=== PATIENT | female | born 1995 | race Caucasian/White ===

== ENCOUNTER 2018-03-18 21:14 | Emergency (ER) | payer OTHER ==
[~2018-03-18] VITALS: Ht 157.5 cm; Wt 54.3 kg
[2018-03-18 21:24] VITALS: Ht 157.5 cm; Wt 54.3 kg
[2018-03-18 21:52] LABS: BASO % 1.6 %; EOS % 1.3 %; EOS ABS # 0.08 K/uL (0-0.5); HEMATOCRIT 41.4 % (37-47); HEMOGLOBIN 14.4 g/dL (12.0-16.0); IG# 0.01 K/uL (0.00-0.02); LYMPH % 49.1 %; LYMPH ABS # 3.01 K/uL (1.2-3.4); MEAN CELL VOLUME 86.4 fL (80-100); MEAN CORPUSCULAR HEMOGLOBIN 30.1 pg (25-34); MEAN CORPUSCULAR HGB CONC 34.8 g/dl (32-36); MEAN PLATELET VOLUME 10.3 fL (7.4-10.4); MONO % 8.2 %; NEUT % 39.6 %; NEUT ABS # 2.43 K/uL (1.4-6.5); PLATELET COUNT 264 K/uL (130-400); RED CELL DISTRIBUTION WIDTH CV 12.9 % (11.5-14.5); RED CELL DISTRIBUTION WIDTH SD 41.4 fL (36.4-46.3); WHITE BLOOD COUNT 6.13 K/uL (4.8-10.8)
[2018-03-18 22:08] LABS: CALCIUM 9.1 mg/dl (8.5-10.1); CREATININE 0.76 mg/dl (0.60-1.20); POTASSIUM 4.1 mmol/L (3.5-5.1)
[2018-03-18] MEDS ORDERED: SERT50TA PO (22:10)
[2018-03-18] MEDS ORDERED: BCPILLS PO (22:10)
--- NOTE | 2018-03-18 22:15 | DIAGNOSTIC IMAGING REPORT ---
RIGHT PAROTID ULTRASOUND CLINICAL HISTORY: Right jaw pain. COMPARISON STUDY: No previous studies for comparison. FINDINGS: There are a few small intraparotid lymph nodes. The parotid gland appears otherwise normal. There is no evidence of significant hypervascularity. IMPRESSION: Small intraparotid lymph nodes. Otherwise unremarkable ultrasound of the right parotid gland. Electronically signed by: Alan Banerjee M.D. 03/18/2018 10:14 PM Dictated Date/Time: 03/18/2018 10:12 PM
[2018-03-18] MEDS ORDERED: AMOXICILLIN 250 MG CAP PO STA (22:41)
[2018-03-18] MEDS ORDERED: AMOX500C3 PO (22:47)
[2018-03-18 22:53] VITALS: BP 125/84; PULSE 70; TEMP 36.9; O2SAT 99
--- NOTE | 2018-03-19 00:50 | EMERGENCY ROOM VISIT NOTE ---
History First contact with patient: 21:26 Chief Complaint: FACIAL PAIN/INJURY Stated Complaint: PAIN IN JAW History of Present Illness The patient is a 22 year old female who presents to the Emergency Room with complaints of right lower jaw pain for the past few days it is steadily getting worse that is slightly swollen. Patient states her grandfather had jaw cancer and she is worried she might have this. Patient does not smoke or chew tobacco. No alcohol use. No drug use. Patient states pain is worse with chewing and movement of the jaw. Pain is described as aching, ranging in severity 4 out of 10. It does not radiate. She does grind her teeth. She sees a dentist on a regular basis. She does not have wisdom teeth. No history of similar symptoms in the past. Patient denies chest pain, dyspnea, fever, chills, cough, congestion, cold symptoms, dysphagia, mouth swelling, dental pain. Review of Systems An 10 system review of systems was completed with positives and pertinent negatives listed in the HPI. Past Medical/Surgical History Endometriosis Social History Smoking Status: Never Smoker Smokeless Tobacco Use: No Alcohol Use: none Drug Use: none Occupation Status: employed Current/Historical Medications Scheduled Amoxicillin (Amoxil), 500 MG PO TID Control Pills ( Control Pills), 1 TAB PO DAILY Sertraline (Zoloft), 50 MG PO DAILY Physical Exam Vital Signs Date Time Temp Pulse Resp B/P (MAP) Pulse Ox O2 Delivery O2 Flow Rate FiO2 03/18/18 22:53 36.9 70 20 125/84 99 03/18/18 22:44 36.9 70 20 125/84 99 Room Air 03/18/18 21:24 36.9 67 20 115/80 99 Room Air Physical Exam VITALS: Vitals are noted on the nurse's note and reviewed by myself. Vital signs stable. GENERAL: Pleasant, in no acute distress, nondiaphoretic, well-developed well- nourished. SKIN: The skin was without rashes, erythema, edema, or bruising. There is no tenting of the skin. Capillary reflex less than 2 seconds. HEAD: Normocephalic atraumatic. Face: Right lower jaw line slightly edematous and tender to palpation. Patient can fully open and close jaw without tenderness over the TMJ. Dental exam: No loose or chipped teeth. No signs of abscess. No drainage from [place]'s duct. No Bhavesh's angina. EARS: External auditory canals clear, tympanic membranes pearly singh without erythema or effusion bilaterally. EYES: Pupils equal round and reactive to light and accommodation. Conjunctivae without injection, sclerae without icterus. Extraocular movements intact. NOSE: Patent, turbinates without inflammation or discharge. No sinus tenderness. MOUTH: Mucous membranes moist. Pharynx without erythema or exudate. Uvula midline. Airway patent. Tongue does not deviate. NECK: Supple without nuchal rigidity. No lymphadenopathy. No thyromegaly. Cervical spine is nontender. No JVD. HEART: Regular rate and rhythm without murmurs gallops or rubs. LUNGS: Clear to auscultation bilaterally without wheezes, rales or rhonchi. No retractions or accessory muscle use. ABDOMEN: Positive bowel sounds x 4. Normal tympanic percussion. Soft, nontender, without masses or organomegaly. [place] sign negative. No guarding or rebound tenderness. MUSCULOSKELETAL: No muscle atrophy, erythema, or edema noted. NEURO: Patient was alert and oriented to person place and time. Normal sensation to light and sharp touch. No focal neurological deficits. Medical Decision & Procedures Laboratory Results 03/18/18 21:43 Red Blood Count 4.79, Mean Corpuscular Volume 86.4, Mean Corpuscular Hemoglobin 30.1, Mean Corpuscular Hemoglobin Concent 34.8, Mean Platelet Volume 10.3, Neutrophils (%) (Auto) 39.6, Lymphocytes (%) (Auto) 49.1, Monocytes (%) (Auto) 8.2, Eosinophils (%) (Auto) 1.3, Basophils (%) (Auto) 1.6, Neutrophils # (Auto) 2.43, Lymphocytes # (Auto) 3.01, Monocytes # (Auto) 0.50, Eosinophils # (Auto) 0.08, Basophils # (Auto) 0.10 03/18/18 21:43 Test 03/18/18 21:43 White Blood Count 6.13 K/uL (4.8-10.8) Red Blood Count 4.79 M/uL (4.2-5.4) Hemoglobin 14.4 g/dL (12.0-16.0) Hematocrit 41.4 % (37-47) Mean Corpuscular Volume 86.4 fL (80-100) Mean Corpuscular Hemoglobin 30.1 pg (25-34) Mean Corpuscular Hemoglobin Concent 34.8 g/dl (32-36) Platelet Count 264 K/uL (130-400) Mean Platelet Volume 10.3 fL (7.4-10.4) Neutrophils (%) (Auto) 39.6 % Lymphocytes (%) (Auto) 49.1 % Monocytes (%) (Auto) 8.2 % Eosinophils (%) (Auto) 1.3 % Basophils (%) (Auto) 1.6 % Neutrophils # (Auto) 2.43 K/uL (1.4-6.5) Lymphocytes # (Auto) 3.01 K/uL (1.2-3.4) Monocytes # (Auto) 0.50 K/uL (0.11-0.59) Eosinophils # (Auto) 0.08 K/uL (0-0.5) Basophils # (Auto) 0.10 K/uL (0-0.2) RDW Standard Deviation 41.4 fL (36.4-46.3) RDW Coefficient of Variation 12.9 % (11.5-14.5) Immature Granulocyte % (Auto) 0.2 % Immature Granulocyte # (Auto) 0.01 K/uL (0.00-0.02) Anion Gap 6.0 mmol/L (3-11) Est Creatinine Clear Calc Drug Dose 93.4 ml/min Estimated GFR () 130.9 Estimated GFR (Non- 112.9 BUN/Creatinine Ratio 10.2 (10-20) Calcium Level 9.1 mg/dl (8.5-10.1) Amylase Level 64 U/L (25-115) Medications Administered Medications (Trade) Dose Ordered Sig/[place] Route Start Time Stop Time Status Last Admin Dose Admin Amoxicillin (Amoxil Cap) 500 mg NOW STAT PO 03/18/18 22:41 03/18/18 22:43 DC 03/18/18 22:48 500 MG ED Course Prior records reviewed and summarized as above. Triage Nursing notes reviewed. The patient's history was concerning for swelling and right lower jaw pain steadily getting worse. Differential diagnosis: Etiologies such as dental infection, peritonitis, salivary stone, cellulitis, abscess, TMJ, bruxism as well as others were entertained.. Physical examination: As above ER treatment provided: Amoxicillin, patient declined pain medicine On reassessment the patient felt better. Diagnostics interpreted by me: The labs revealed no leukocytosis. Stable H&H Imaging studies: RIGHT PAROTID ULTRASOUND CLINICAL HISTORY: Right jaw pain. COMPARISON STUDY: No previous studies for comparison. FINDINGS: There are a few small intraparotid lymph nodes. The parotid gland appears otherwise normal. There is no evidence of significant hypervascularity. IMPRESSION: Small intraparotid lymph nodes. Otherwise unremarkable ultrasound of the right parotid gland. Electronically signed by: Alan Banerjee M.D. This appears to be right lower jaw pain with some reactive lymph nodes. This could be an early infection. Patient was started on antibiotics. She was advised to avoid touching the area and follow-up family care in a few days or here in the ER sooner for fevers, increasing pain, increasing swelling, worsening signs or symptoms or as needed. Patient had no discernible abscess. No leukocytosis. She is afebrile nontoxic. No signs of meningitis or Bhavesh's angina. By the evaluation outlined above emergent etiologies such as abscess, Bhavesh angina, as well as others were deemed relatively unlikely. The pt informed about the findings as listed above. All questions were answered and pleased with the treatment. Return instructions were outlined and the patient was discharged in stable condition. Outpatient prescription management: Amoxicillin Referral: The patient was referred back to primary care physician for follow-up in 2 to 3 days for a recheck of the current condition. Case reviewed with my attending The chart was completed utilizing [employer] Speech voice recognition software. Grammatical errors, random word insertions, pronoun errors, and incomplete sentences are an occassional consequence of this system due to software limitations, ambient noise, and hardware issues. Any formal questions or concerns about the content, text, or information contained within the body of this dictation should be directly addressed to the physician elementary assistant teacher for clarification. Medical Decision As above Medication Reconcilliation Current Medication List: was personally reviewed by me Blood Pressure Screening Patient's blood pressure: Normal blood pressure Impression Primary Impression: Lymphadenopathy Additional Impressions: Jaw pain Parotid gland pain Departure Information Dispostion Home / Self-Care Condition GOOD Prescriptions Amoxicillin (AMOXIL) 500 Mg Cap 500 MG PO TID for 10 Days, #30 CAP Prov: Anyi Donald .TANISHA 03/18/18 Forms HOME CARE DOCUMENTATION FORM, IMPORTANT VISIT INFORMATION Patient Instructions My [facility] Additional Instructions Amoxicillin 500mg: Take one pill 3 times daily for 10 days for your infection. All antibiotics can cause diarrhea. If this occurs and you feel worse or it does not resolve in 1-2 days follow up with your doctor or return to the Emergency Department as this could be signs of serious underlying problems. Any medication can cause an allergic reaction, stop the pills immediately and return to the ER for rash, hives, breathing difficulties, or swelling. Ibuprofen(Motrin, Advil) may be used for fever or pain. Use 400mg every six hours as needed. Take with food. Avoid using more than 1600mg in a 24 hour period. Do not use 1600mg per day for more than three consecutive days without physician direction. Prolonged inappropriate use can lead to stomach upset or ulcers. This medication can be taken if you need to drive, work, or perform activities which may be dangerous when taking narcotic pain medication. (AND/OR) Acetaminophen(Tylenol) may be used for fever or pain. Use 1000mg every six hours as needed. Avoid using more than 3000mg in a 24 hour period. This medication can be taken if you need to drive, work, or perform activities which may be dangerous when taking narcotic pain medication. Follow-up family care in 2-3 days. Return to ER sooner for facial swelling, fever, redness, worsening signs or symptoms or as needed. Problem Qualifiers
== END 2018-03-18 22:53 | disposition home or self-care (01) ==
LOC: C.EDB 21:15 → C.EDD 22:53
DX: R59.1 Generalized enlarged lymph nodes (principal); R68.84 Jaw pain; K11.8 Other diseases of salivary glands; Z79.3 Long term (current) use of hormonal contraceptives; Z79.899 Other long term (current) drug therapy

== ENCOUNTER 2018-06-24 23:13 | Emergency (ER) | payer OTHER ==
[~2018-06-24] VITALS: Ht 157.5 cm; Wt 56.7 kg
[~2018-06-24 23:13] MED LIST: BCPILLS PO; SERT50TA PO
[2018-06-24 23:17] VITALS: TEMP 36.9; Ht 157.5 cm; Wt 56.7 kg
--- NOTE | 2018-06-24 23:33 | EMERGENCY ROOM VISIT NOTE ---
History Report prepared by Shireen: Raúl Snyder Under the Supervision of: Dr. Samantha Esquivel D.O. 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 She reports she lost consciousness and hit her head on the floor. She states it was unwitnessed. The patient notes she has a history of syncopal episode without warning. She states she has lost consciousness within the past year without explanation. The patient reports each episode of losing consciousness occurred when she was standing. She notes she felt perfectly fine today and was eating and drinking normally. The patient states she was surprised she lost consciousness. Her coworker reports she was alert and talking immediately after ; she did not have trouble with her eyes or speech. The coworker denies seizure like activity. The patient notes she has a mild headache and attributes it to her busy work day. The patient states she once lost consciousness while she was getting water from her fridge at home. 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 She reports she takes Zoloft, and if she messes her dosing up, she will get vertigo-like symptoms and lose consciousness. The patient notes she used to take iron supplements per her MGMT SPECIALIST, but she has stopped taking it. She states a history of anxiety and endometriosis. She denies being evaluated for her syncopal episodes, physical complaints, a family history of syncopal episodes, abdominal pain, neck pain, and back pain. 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 A total of 10 systems reviewed and were otherwise negative. Past Medical & Surgical Medical Problems: (1) Endometriosis Family History Patient reports no known family medical history. Social History Smoking Status: Never Smoker Alcohol Use: none Drug Use: none Marital Status: single Housing Status: lives with roommate Occupation Status: employed, [employer] student Current/Historical Medications Scheduled Control Pills ( Control Pills), 1 TAB PO DAILY Sertraline (Zoloft), 50 MG PO DAILY Allergies Coded Allergies: No Known Allergies (Unverified , 06/24/18) Physical Exam Vital Signs Date Time Temp Pulse Resp B/P (MAP) Pulse Ox O2 Delivery O2 Flow Rate FiO2 06/25/18 01:58 68 18 116/75 99 06/25/18 00:47 66 16 114/69 98 Room Air 06/24/18 23:57 64 06/24/18 23:17 36.9 61 18 126/84 100 Room Air Physical Exam HEENT: Head - normocephalic and atraumatic. Pupils are equal, round, and reactive to light. Extraocular eye muscles are intact and sclera are anicteric. Ears - bilaterally patent canals with no evidence of hemotympanum. Nose - moist nasal mucosa without evidence of trauma or discharge. Mouth - moist buccal mucosa with no trauma to the teeth or signs of malocclusion. Neck: The neck is supple and there is no pain to palpation over the posterior cervical spine and no obvious step-offs or deformities. There is no JVD or tracheal deviation. Chest: There are no signs of deformities, contusions or abrasions to the chest wall. There is no obvious crepitus or paradoxical chest rise. Heart: Regular, rate, and rhythm. There is a normal S1 and S2 with no murmurs, clicks, or gallops appreciated. Lungs: Clear to auscultation bilaterally with no wheezes, rales, or rhonchi. Abdomen: Soft, completely nontender, nondistended, with good bowel sounds. There is no sign of trauma such as contusions, abrasions or penetrations. There are no palpable pulsatile masses or hepatosplenomegaly. There is no guarding, rigidity, or rebound noted. Pelvis: Stable to rock and compression. Extremities: No obvious trauma, deformities, contusions, or edema. There are easily palpable peripheral pulses. Neuro: The patient is awake and alert and easily able to follow commands. Muscle strength is 5 out of 5 in all 4 extremities. Otherwise, neuro exam is unremarkable. Back: The entire thoracic, lumbar, and sacral spine were palpated. There are no obvious step-offs or deformities noted. There are no obvious signs of trauma such as contusions abrasions penetrations noted to the back. Medical Decision & Procedures Laboratory Results 06/24/18 23:45 Red Blood Count 4.55, Mean Corpuscular Volume 87.7, Mean Corpuscular Hemoglobin 29.0, Mean Corpuscular Hemoglobin Concent 33.1, Mean Platelet Volume 10.6, Neutrophils (%) (Auto) 38.3, Lymphocytes (%) (Auto) 53.0, Monocytes (%) (Auto) 6.7, Eosinophils (%) (Auto) 1.5, Basophils (%) (Auto) 0.5, Neutrophils # (Auto) 2.23, Lymphocytes # (Auto) 3.09, Monocytes # (Auto) 0.39, Eosinophils # (Auto) 0.09, Basophils # (Auto) 0.03 06/24/18 23:45 Test 06/24/18 23:45 06/25/18 00:50 White Blood Count 5.83 K/uL (4.8-10.8) Red Blood Count 4.55 M/uL (4.2-5.4) Hemoglobin 13.2 g/dL (12.0-16.0) Hematocrit 39.9 % (37-47) Mean Corpuscular Volume 87.7 fL (80-100) Mean Corpuscular Hemoglobin 29.0 pg (25-34) Mean Corpuscular Hemoglobin Concent 33.1 g/dl (32-36) Platelet Count 253 K/uL (130-400) Mean Platelet Volume 10.6 fL (7.4-10.4) Neutrophils (%) (Auto) 38.3 % Lymphocytes (%) (Auto) 53.0 % Monocytes (%) (Auto) 6.7 % Eosinophils (%) (Auto) 1.5 % Basophils (%) (Auto) 0.5 % Neutrophils # (Auto) 2.23 K/uL (1.4-6.5) Lymphocytes # (Auto) 3.09 K/uL (1.2-3.4) Monocytes # (Auto) 0.39 K/uL (0.11-0.59) Eosinophils # (Auto) 0.09 K/uL (0-0.5) Basophils # (Auto) 0.03 K/uL (0-0.2) RDW Standard Deviation 42.1 fL (36.4-46.3) RDW Coefficient of Variation 13.1 % (11.5-14.5) Immature Granulocyte % (Auto) 0.0 % Immature Granulocyte # (Auto) 0.00 K/uL (0.00-0.02) Anion Gap 9.0 mmol/L (3-11) Est Creatinine Clear Calc Drug Dose 84.5 ml/min Estimated GFR () 116.0 Estimated GFR (Non- 100.1 BUN/Creatinine Ratio 13.8 (10-20) Calcium Level 8.4 mg/dl (8.5-10.1) Total Bilirubin 0.4 mg/dl (0.2-1) Aspartate Amino Transf (AST/SGOT) 24 U/L (15-37) Alanine Aminotransferase (ALT/SGPT) 23 U/L (12-78) Alkaline Phosphatase 64 U/L (45-117) Total Protein 7.5 gm/dl (6.4-8.2) Albumin 4.0 gm/dl (3.4-5.0) Globulin 3.5 gm/dl (2.5-4.0) Albumin/Globulin Ratio 1.1 (0.9-2) Thyroid Stimulating Hormone (TSH) 1.900 uIu/ml (0.300-4.500) Urine Color YELLOW Urine Appearance CLEAR (CLEAR) Urine pH 5.5 (4.5-7.5) Urine Specific [place] 1.012 (1.000-1.030) Urine Protein NEG (NEG) Urine Glucose (UA) NEG (NEG) Urine Ketones TRACE (NEG) Urine Occult Blood 1+ (NEG) Urine Nitrite NEG (NEG) Urine Bilirubin NEG (NEG) Urine Urobilinogen NEG (NEG) Urine Leukocyte Esterase TRACE (NEG) Urine WBC (Auto) 1-5 /hpf (0-5) Urine RBC (Auto) 0-4 /hpf (0-4) Urine Hyaline Casts (Auto) 0 /lpf (0-5) Urine Epithelial Cells (Auto) >30 /lpf (0-5) Urine Bacteria (Auto) NEG (NEG) Urine Test NEG (NEG) Laboratory results per my review. ECG Per My Interpretation Indication: syncope Rate (beats per minute): 60 Rhythm: normal sinus Findings: no acute ischemic change, no ectopy, other (No ST segment changes) ED Course 2326: The patient was evaluated in room B05. A complete history and physical examination were performed. Nursing notes and previous electronic medical records were reviewed. IV lock was established and labs were drawn as above. A 12-lead EKG was obtained as described above. 0101: I reevaluated the patient. She is feeling great. We are waiting for her UA. 0155: Upon reevaluation, the patient is asymptomatic. I discussed findings and results with her. The patient verbalized agreement of the treatment plan. She was discharged home. Medical Decision The patient is a 22 year old female who presents to the Emergency Department after a syncopal episode. Differential diagnosis includes syncope, seizure, cardiac dysrhythmia, anemia, hypoglycemia. Lab results show: Normal TSH, normal glucose and renal function, stable H&H, normal MCV. UA - trace ketones, 1+ blood, trace leukocyte esterase, greater than 30 epithelial cells, negative. This is a 22-year-old female patient presents to the emergency department after a syncopal event. The patient states that she has had multiple previous syncopal events in the past. She denies injuring herself during this episode. 12-lead EKG was unremarkable. The patient was observed on the manager field services. Laboratory studies were normal. We talked about possible causes of syncope in a young healthy female. I suggested that she follow-up with the PCP for possible referral to cardiology and neurology for syncope with no prodromal symptoms. Head Trauma GCS Score: 15 Medication Reconcilliation Current Medication List: was personally reviewed by me Blood Pressure Screening Patient's blood pressure: Normal blood pressure Blood pressure disposition: Did not require urgent referral Impression Primary Impression: Syncopal episodes Scribe Attestation The scribe's documentation has been prepared under my direction and personally reviewed by me in its entirety. I confirm that the note above accurately reflects all work, treatment, procedures, and medical decision making performed by me. Departure Information Dispostion Home / Self-Care Referrals No Doctor, Assigned (PCP) Forms HOME CARE DOCUMENTATION FORM, IMPORTANT VISIT INFORMATION Patient Instructions My [facility], Syncope, Syncope Causes Additional Instructions Rest. Keep yourself well-hydrated and well rested. You will need close follow up with PCP for further evaluation of these episodes of passing out Problem Qualifiers Primary Impression: Syncopal episodes Syncope type: unspecified Qualified Codes: R55 - Syncope and collapse
[2018-06-25] LABS: HEMATOCRIT 39.9 % (37-47); HEMOGLOBIN 13.2 g/dL (12.0-16.0); MEAN CELL VOLUME 87.7 fL (80-100); MEAN CORPUSCULAR HGB CONC 33.1 g/dl (32-36); MEAN PLATELET VOLUME 10.6 fL (7.4-10.4); PLATELET COUNT 253 K/uL (130-400); RED CELL DISTRIBUTION WIDTH CV 13.1 % (11.5-14.5); RED CELL DISTRIBUTION WIDTH SD 42.1 fL (36.4-46.3); WHITE BLOOD COUNT 5.83 K/uL (4.8-10.8)
[2018-06-25 00:29] LABS: CALCIUM 8.4 mg/dl (8.5-10.1); CREATININE 0.84 mg/dl (0.60-1.20); POTASSIUM 3.9 mmol/L (3.5-5.1); TOTAL PROTEIN 7.5 gm/dl (6.4-8.2)
[2018-06-25 00:40] LABS: BASO % 0.5 %; BASO ABS # 0.03 K/uL (0-0.2); EOS % 1.5 %; EOS ABS # 0.09 K/uL (0-0.5); LYMPH ABS # 3.09 K/uL (1.2-3.4); MONO % 6.7 %; MONO ABS # 0.39 K/uL (0.11-0.59); NEUT % 38.3 %; NEUT ABS # 2.23 K/uL (1.4-6.5)
[2018-06-25 01:58] VITALS: BP 116/75; PULSE 68; O2SAT 99
== END 2018-06-25 01:55 | disposition home or self-care (01) ==
LOC: C.EDB 23:14
DX: R55 Syncope and collapse (principal); Z79.3 Long term (current) use of hormonal contraceptives; Z79.899 Other long term (current) drug therapy

== ENCOUNTER 2022-11-27 06:36 | Inpatient (IN) ==
[2022-11-27] MEDS ORDERED: OXYTOCIN 30 UNITS/500 ML BAG IV PRN ×4 (07:20→20:26)
[2022-11-27] MEDS ORDERED: LIDOCAINE 1% LOCAL 20 ML VIAL INFIL PRN ×2 (07:20→07:26)
[2022-11-27] MEDS ORDERED: LACTATED RINGER'S 1,000 ML IV PRN (07:26)
--- NOTE | 2022-11-27 07:30 | History & Physical Report ---
Date of Service November 27, 2022 Assessment & Plan (1) Supervision of normal first : Plan: Admit to L&D. EFM/toco, labs, plans for epidural. Admission and Anticipated Discharge Date Admission Date: November 27, 2022 History of Present Illness Chief Complaint: spontaneous rupture of membranes Primary Care Provider: Erwin Solomon 27yo @ 42 0/7, with large gush of clear fluid at approx 3:30 this morning. + movement, no vaginal bleeding. Feeling some contractions. with LEEP in 2019, COVID infection over 2021. Allergies Allergy/AdvReac Type Severity Reaction Status Date / Time No Known Allergies Allergy Verified 11/23/22 09:50 Home Medications Medication Instructions Recorded Confirmed Type prenat.vits,suzie,iug-aqmi-hylyi 1 tab PO DAILY 04/05/22 11/27/22 History Fish Oil 2,024 mg PO 1XD 11/27/22 11/27/22 History Patient History Medical History ADHD COVID-19 PCOS (polycystic ovarian syndrome) Varicella vaccination Surgical History S/P loop electrosurgical excision procedure S/P tonsillectomy S/P wisdom tooth extraction Status post colposcopy Family History Grandfather (Paternal) Prostate cancer Throat cancer Grandfather (Maternal) Lung cancer Grandmother (Paternal) Dementia Father Hypertension Denies family history of Ovarian cancer Breast cancer Colorectal cancer Social History Smoking Status: Never smoker Second Hand Exposure: No; Hx Alcohol Use: No Hx Substance Use: No Preferred Language: [place] Citizen marital status: Single marital status details: simone Hobson King [phone] Current Living Situation: Significant Other Current Living Situation Comment: lives with dog, cat-fob changing litter current occupational status: employed 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 No s/s chorio or abruption. Skin: no rashes, warm and dry Psychiatric: A+Ox3, euthymic affect Results & Data ([facility]) Vital Signs (Past 12 Hours) Vital Signs Pulse BP 11/27/22 06:41 72 120/67 Coding Level of Care Code None Diagnoses Supervision of normal first Z34.00
[2022-11-27] MEDS: LACTATED RINGER'S 1,000 ML IV PRN ×3 (07:54→17:28)
[2022-11-27] MEDS ORDERED: fentaNYL citrate 100 MCG/2 ML VIAL ONE (08:28)
[2022-11-27] MEDS ORDERED: SODIUM CHLORIDE 0.9% INJ 10 ML VIAL ONE (08:28)
[2022-11-27] MEDS ORDERED: ePHEDrine sulfate 50 MG/ML AMP ONE (08:28)
[2022-11-27] MEDS ORDERED: LIDOCAINE 2%/EPINEPHRINE 1:200,000 20 ML SDV ONE (08:29)
[2022-11-27] MEDS ORDERED: BUPIVACAINE 0.25% 30 ML VIAL ONE (08:29)
[2022-11-27] MEDS ORDERED: fentaNYL 2MCG/ML ROPIVACAINE 1.25MG/ML 100 ML BAG EPI ONE (08:29)
[2022-11-27 09:01] LABS: Hematocrit (blood only) 37.7 % (37.0-47.0); Mean Corpuscular Hemoglobin 27.4 pg (25.0-34.0); Mean Corpuscular Hgb Conc 31.8 g/dL (32.0-36.0); Mean Corpuscular Volume 86.1 fL (80.0-100.0); Platelet Count 235 K/uL (130-400); RDW Coefficient of Variation 13.7 % (11.5-14.5); RDW Standard Deviation 42.3 fL (36.4-46.3); Red Blood Count 4.38 M/uL (4.20-5.40); White Blood Count 8.01 K/ul (4.8-10.8)
--- NOTE | 2022-11-27 09:31 | Anesthesiology Consultation ---
Date of Service November 27, 2022 Assessment & Plan Chart Review Chart Review: Acceptable Risk for Labor Epidural Consults Requested none ASA ASA2 Proposed Anesthesia Anesthesia Type: Labor Epidural Risk / Benefits Reviewed With: PT / POA / Parent / Guardian, Accepts Plan and Informed Consent Obtained History Height/Weight Height: 5 ft 2 in Weight: 78.471 kg Allergies Allergy/AdvReac Type Severity Reaction Status Date / Time No Known Allergies Allergy Verified 11/23/22 09:50 Medications Home Medications Medication Instructions Recorded Confirmed Last Taken prenat.vits,suzie,jvq-tnwa-omsbt 1 tab PO DAILY 04/05/22 11/27/22 11/26/22 Fish Oil 2,024 mg PO 1XD 11/27/22 11/27/22 11/26/22 Active Medications Generic Name Dose Route Start Last Admin Trade Name Freq PRN Reason Stop Dose Admin Lactated Ringer's 1,000 mls @ 125 mls/hr 11/27/22 07:20 11/27/22 09:05 Lr IV 11/29/22 07:19 125 mls/hr .Q8H PRN Administration L&D Protocol Protocol NPO Date Last Intake of Fluids: 11/27/22 Time Last Intake of Fluids: 08:00 Date Last Intake of Solids: 11/27/22 Time Last Intake of Solids: 05:30 Past Medical History Medical History ADHD COVID-19 PCOS (polycystic ovarian syndrome) Varicella vaccination Exercise / Class Metabolic Activity II 4-5 Yardwork/Stairs/Walk up hill Past Family History Family History Grandfather (Paternal) Prostate cancer Throat cancer Grandfather (Maternal) Lung cancer Grandmother (Paternal) Dementia Father Hypertension Denies family history of Ovarian cancer Breast cancer Colorectal cancer Past Surgical History Surgical History S/P loop electrosurgical excision procedure S/P tonsillectomy S/P wisdom tooth extraction Status post colposcopy Past Anesthesia History No Hx of Anesthesia Complications and No Family Hx of Anesthesia Complications History of PONV No Hx of PONV and No Hx of Motion Sickness Social History Smoking Status: Never smoker Do You Dip or Chew Tobacco: No Hx Alcohol Use: No Hx Substance Use: No Physical Exam Vital Signs Last Vital Signs Temp 36.9 C 11/27/22 09:00 Pulse 72 11/27/22 09:21 Resp 20 11/27/22 09:00 BP 134/74 11/27/22 07:59 Pulse Ox 99 11/27/22 09:21 ENMT Mouth: no TMJ abnormality Thyromental Distance: > or= 3.5 Finger Breadths Mallampati Class: II Neck normal visual inspection and trachea midline; neck extension not limited Respiratory normal respiratory effort Auscultation: lungs clear to auscultation bilaterally Cardiovascular Rate/Rhythm: regular rate and regular rhythm Heart Sounds: no murmur Musculoskeletal Spine: normal cervical ROM Extremities: full ROM of extremities Neurologic moves all extremities Psychiatric Orientation: alert and oriented x 3 Testing Laboratory Results 11/27/22 07:36
[2022-11-27] MEDS ORDERED: ePHEDrine sulfate 50 MG/ML AMP IV PRN (09:48)
[2022-11-27] MEDS ORDERED: NALBUPHINE HCL INJ 10 MG/ML AMP IV PRN (09:48)
[2022-11-27] MEDS ORDERED: METOCLOPRAMIDE HCL 20 MG in SODIUM CHLORIDE 0.9% 50 ML IV PRN (09:48)
[2022-11-27] MEDS ORDERED: fentaNYL 2MCG/ML ROPIVACAINE 1.25MG/ML 100 ML BAG EPI PRN (09:48)
[2022-11-27] MEDS ORDERED: diphenhydrAMINE 50 MG/ML VIAL IV PRN (09:48)
[2022-11-27] MEDS ORDERED: NALOXONE HCL 0.4 MG/1 ML VIAL/CARP IV PRN (09:48)
[2022-11-27] MEDS ORDERED: ONDANSETRON INJ 2 MG/ML 2 ML VIAL IV PRN (09:48)
[2022-11-27] MEDS ORDERED: NALOXONE HCL 1 MG in SODIUM CHLORIDE 0.9% 1000ML 1,000 ML IV PRN (09:48)
--- NOTE | 2022-11-27 10:46 | Labor Progress Brief Note ---
Date of Service November 27, 2022 Subjective comfortable w/ epidural Assessment & Plan (1) SROM (spontaneous rupture of membranes): Plan: 27 yo G1 at 42 wga admitted w/ srom/labor VSS Fetus cat 1 Labor - progression spontaneously, continue to monitor. Amenable to pit if indicated GBS neg epidural in place Admission and Anticipated Discharge Date Admission Date: November 27, 2022 Physical Exam Genitourinary: Manual OB Exam: + cervical dilation (4-5), + cervical effacement 80% and + station -1 OB Exam Monitor Tracing: + external FHT monitor used, + external uterine monitor used (q3-5) and + category I (125/ mod/+accel/-decel) Results & Data ([facility]) Vital Signs (Past 12 Hours) Vital Signs Temp Pulse Resp BP Pulse Ox 11/27/22 07:11 98.4 F 18 11/27/22 10:41 100 11/27/22 10:41 79 11/27/22 10:36 99 11/27/22 10:36 69 11/27/22 10:34 59 L 11/27/22 10:34 114/66 11/27/22 10:31 100 11/27/22 10:31 64 11/27/22 10:26 100 11/27/22 10:26 63 11/27/22 10:24 59 L 11/27/22 10:24 124/71 11/27/22 10:21 100 11/27/22 10:21 62 11/27/22 10:16 99 11/27/22 10:16 68 11/27/22 10:14 65 11/27/22 10:14 125/61 11/27/22 10:11 99 11/27/22 10:11 64 11/27/22 10:06 100 11/27/22 10:06 67 11/27/22 10:03 63 11/27/22 10:03 132/64 11/27/22 10:01 99 11/27/22 10:01 70 11/27/22 10:00 62 11/27/22 10:00 124/58 L 11/27/22 09:58 64 11/27/22 09:58 130/72 11/27/22 09:56 99 11/27/22 09:56 69 11/27/22 09:56 63 11/27/22 09:56 126/73 11/27/22 09:45 18 11/27/22 09:45 18 11/27/22 09:54 63 11/27/22 09:54 135/73 11/27/22 09:51 100 11/27/22 09:51 62 11/27/22 09:52 62 11/27/22 09:52 139/63 11/27/22 09:50 67 11/27/22 09:50 129/61 11/27/22 09:47 60 11/27/22 09:47 139/69 11/27/22 09:46 99 11/27/22 09:46 61 11/27/22 09:42 78 11/27/22 09:42 132/86 11/27/22 09:41 100 11/27/22 09:41 77 11/27/22 09:40 73 11/27/22 09:40 125/88 11/27/22 09:36 100 11/27/22 09:36 75 11/27/22 09:31 100 11/27/22 09:31 84 11/27/22 09:29 75 11/27/22 09:29 133/108 H 11/27/22 09:26 99 11/27/22 09:26 66 11/27/22 09:21 99 11/27/22 09:21 72 11/27/22 09:16 100 11/27/22 09:16 86 11/27/22 09:11 99 11/27/22 09:11 70 11/27/22 09:06 100 11/27/22 09:06 64 11/27/22 09:01 99 11/27/22 09:01 71 11/27/22 09:00 20 11/27/22 09:00 98.4 F 20 11/27/22 08:56 99 11/27/22 08:56 64 11/27/22 08:51 99 11/27/22 08:51 63 11/27/22 08:46 99 11/27/22 08:46 78 11/27/22 07:59 71 11/27/22 07:59 134/74 11/27/22 06:41 72 120/67 Coding Level of Care Code None Diagnoses SROM (spontaneous rupture of membranes)
--- NOTE | 2022-11-27 13:22 | Labor Progress Brief Note ---
Date of Service November 27, 2022 Subjective comfortable w/ epidural Assessment & Plan (1) SROM (spontaneous rupture of membranes): Plan: 27 yo G1 at 42 wga admitted w/ srom/labor VSS Fetus cat 1 Labor - progressing well, continue to monitor. GBS neg epidural in place Admission and Anticipated Discharge Date Admission Date: November 27, 2022 Physical Exam Genitourinary: Manual OB Exam: + cervical dilation 7 cm, + cervical effacement 80% and + station 0 OB Exam Monitor Tracing: + external FHT monitor used, + external uterine monitor used (q3-5) and + category I (125/mod/+accel/-decel) Results & Data ([facility]) Vital Signs (Past 12 Hours) Vital Signs Temp Pulse Resp BP Pulse Ox 11/27/22 07:11 98.4 F 18 11/27/22 13:16 100 11/27/22 13:16 69 11/27/22 13:00 18 11/27/22 13:00 98.1 F 18 11/27/22 13:14 75 11/27/22 13:14 130/79 11/27/22 13:11 99 11/27/22 13:11 79 11/27/22 13:06 100 11/27/22 13:06 77 11/27/22 13:04 78 11/27/22 13:04 118/87 11/27/22 13:01 100 11/27/22 13:01 71 11/27/22 12:56 100 11/27/22 12:56 82 11/27/22 12:54 62 11/27/22 12:54 118/69 11/27/22 12:51 100 11/27/22 12:51 62 11/27/22 12:46 99 11/27/22 12:46 62 11/27/22 12:44 64 11/27/22 12:44 99/64 L 11/27/22 12:41 100 11/27/22 12:41 69 11/27/22 12:36 99 11/27/22 12:36 71 11/27/22 12:33 58 L 11/27/22 12:33 115/58 L 11/27/22 12:30 18 11/27/22 12:30 18 11/27/22 12:31 100 11/27/22 12:31 69 11/27/22 12:26 99 11/27/22 12:26 63 11/27/22 12:00 20 11/27/22 12:00 20 11/27/22 12:24 57 L 11/27/22 12:24 112/56 L 11/27/22 12:00 20 11/27/22 12:00 20 11/27/22 12:21 100 11/27/22 12:21 65 11/27/22 12:16 99 11/27/22 12:16 69 11/27/22 12:11 100 11/27/22 12:11 77 11/27/22 12:06 100 11/27/22 12:06 84 11/27/22 12:01 100 11/27/22 12:01 73 11/27/22 11:56 99 11/27/22 11:56 61 11/27/22 11:53 61 11/27/22 11:53 119/77 11/27/22 11:51 99 11/27/22 11:51 65 11/27/22 11:46 99 11/27/22 11:46 70 11/27/22 11:43 61 11/27/22 11:43 124/80 11/27/22 11:41 99 11/27/22 11:41 61 11/27/22 11:36 99 11/27/22 11:36 65 11/27/22 11:34 61 11/27/22 11:34 126/79 11/27/22 11:31 99 11/27/22 11:31 62 11/27/22 11:30 18 11/27/22 11:30 18 11/27/22 11:26 98 11/27/22 11:26 62 11/27/22 11:24 62 11/27/22 11:24 132/71 11/27/22 11:21 99 11/27/22 11:21 68 11/27/22 11:05 98.1 F 11/27/22 11:16 98 11/27/22 11:16 63 11/27/22 11:11 99 11/27/22 11:11 67 11/27/22 11:00 18 11/27/22 11:00 18 11/27/22 10:30 16 11/27/22 10:30 16 11/27/22 11:06 98 11/27/22 11:06 65 01/28/23 10:00 18 11/27/22 10:00 18 11/27/22 11:04 60 11/27/22 11:04 128/80 11/27/22 11:01 99 11/27/22 11:01 66 11/27/22 10:56 99 11/27/22 10:56 68 11/27/22 10:55 62 11/27/22 10:55 129/76 11/27/22 10:51 99 11/27/22 10:51 70 11/27/22 10:46 99 11/27/22 10:46 81 11/27/22 10:44 70 11/27/22 10:44 136/65 11/27/22 10:41 100 11/27/22 10:41 79 11/27/22 10:36 99 11/27/22 10:36 69 11/27/22 10:34 59 L 11/27/22 10:34 114/66 11/27/22 10:31 100 11/27/22 10:31 64 11/27/22 10:26 100 11/27/22 10:26 63 11/27/22 10:24 59 L 11/27/22 10:24 124/71 11/27/22 10:21 100 11/27/22 10:21 62 11/27/22 10:16 99 11/27/22 10:16 68 11/27/22 10:14 65 11/27/22 10:14 125/61 11/27/22 10:11 99 11/27/22 10:11 64 11/27/22 10:06 100 11/27/22 10:06 67 11/27/22 10:03 63 11/27/22 10:03 132/64 11/27/22 10:01 99 11/27/22 10:01 70 11/27/22 10:00 62 11/27/22 10:00 124/58 L 11/27/22 09:58 64 11/27/22 09:58 130/72 11/27/22 09:56 99 11/27/22 09:56 69 11/27/22 09:56 63 11/27/22 09:56 126/73 11/27/22 09:45 18 11/27/22 09:45 18 11/27/22 09:54 63 01/28/23 09:54 135/73 11/27/22 09:51 100 11/27/22 09:51 62 11/27/22 09:52 62 11/27/22 09:52 139/63 11/27/22 09:50 67 11/27/22 09:50 129/61 11/27/22 09:47 60 11/27/22 09:47 139/69 11/27/22 09:46 99 11/27/22 09:46 61 11/27/22 09:42 78 11/27/22 09:42 132/86 11/27/22 09:41 100 11/27/22 09:41 77 11/27/22 09:40 73 11/27/22 09:40 125/88 11/27/22 09:36 100 11/27/22 09:36 75 11/27/22 09:31 100 11/27/22 09:31 84 11/27/22 09:29 75 11/27/22 09:29 133/108 H 11/27/22 09:26 99 11/27/22 09:26 66 11/27/22 09:21 99 11/27/22 09:21 72 11/27/22 09:16 100 11/27/22 09:16 86 11/27/22 09:11 99 11/27/22 09:11 70 11/27/22 09:06 100 11/27/22 09:06 64 11/27/22 09:01 99 11/27/22 09:01 71 11/27/22 09:00 20 11/27/22 09:00 98.4 F 20 11/27/22 08:56 99 11/27/22 08:56 64 11/27/22 08:51 99 11/27/22 08:51 63 11/27/22 08:46 99 11/27/22 08:46 78 11/27/22 07:59 71 11/27/22 07:59 134/74 11/27/22 06:41 72 120/67 Coding Level of Care Code None Diagnoses SROM (spontaneous rupture of membranes)
[2022-11-27] MEDS ORDERED: NURSING L&D Epidural Breakthrough Pain Update ONE (14:28)
--- NOTE | 2022-11-27 17:06 | Labor Progress Brief Note ---
Date of Service November 27, 2022 Subjective comfortable w/ epidural, some pressure w/ ctx Assessment & Plan (1) SROM (spontaneous rupture of membranes): Plan: 27 yo G1 at 42 wga admitted w/ srom/labor VSS Fetus cat 1 Labor - 9-9.5cm, I think this is same as exam by nursing a little an hour ago. Will start pit to see if will help and reposition GBS neg epidural in place Admission and Anticipated Discharge Date Admission Date: November 27, 2022 Physical Exam Genitourinary: Manual OB Exam: + cervical dilation 9 cm (9.5), + cervical effacement 90% and + station + 1 OB Exam Monitor Tracing: + external FHT mon itor used, + external uterine monitor used (q3-5) and + category I (120-130/mod/+accel/-decel) Results & Data ([facility]) Vital Signs (Past 12 Hours) Vital Signs Temp Pulse Resp BP Pulse Ox 11/27/22 07:11 98.4 F 18 11/27/22 17:01 100 11/27/22 17:01 95 H 11/27/22 16:59 90 11/27/22 16:59 100 H 11/27/22 16:56 100 11/27/22 16:56 82 11/27/22 16:55 111 H 11/27/22 16:55 117/76 11/27/22 16:51 100 11/27/22 16:51 68 11/27/22 16:46 100 11/27/22 16:46 68 11/27/22 16:43 78 11/27/22 16:43 121/77 11/27/22 16:41 100 11/27/22 16:41 69 11/27/22 16:30 18 11/27/22 16:30 18 11/27/22 16:36 100 11/27/22 16:36 76 11/27/22 16:34 92 11/27/22 16:34 102 H 11/27/22 16:34 119/83 11/27/22 16:31 100 11/27/22 16:31 108 H 11/27/22 16:26 100 11/27/22 16:26 72 11/27/22 16:24 77 11/27/22 16:24 108/59 L 11/27/22 16:00 20 11/27/22 16:00 20 11/27/22 16:21 100 11/27/22 16:21 69 11/27/22 16:16 100 11/27/22 16:16 78 11/27/22 16:15 82 11/27/22 16:15 127/59 L 11/27/22 16:11 100 11/27/22 16:11 73 11/27/22 16:06 100 11/27/22 16:06 103 H 11/27/22 16:05 78 11/27/22 16:05 114/60 11/27/22 16:01 100 11/27/22 16:01 100 H 11/27/22 15:56 98 11/27/22 15:56 102 H 11/27/22 15:53 83 11/27/22 15:53 133/93 11/27/22 15:51 100 11/27/22 15:51 74 11/27/22 15:46 100 11/27/22 15:46 93 H 11/27/22 15:45 80 11/27/22 15:45 127/85 11/27/22 15:41 100 11/27/22 15:41 81 11/27/22 15:30 18 11/27/22 15:30 18 11/27/22 15:36 100 11/27/22 15:36 105 H 11/27/22 15:34 81 11/27/22 15:34 133/65 11/27/22 15:31 100 11/27/22 15:31 81 11/27/22 15:30 91 11/27/22 15:30 88 11/27/22 15:26 99 11/27/22 15:26 96 H 11/27/22 15:24 75 11/27/22 15:24 131/68 11/27/22 15:21 98 11/27/22 15:21 96 H 11/27/22 15:16 98 11/27/22 15:16 83 11/27/22 15:14 82 11/27/22 15:14 114/68 11/27/22 15:11 98 11/27/22 15:11 82 11/27/22 15:06 100 11/27/22 15:06 80 11/27/22 15:04 80 11/27/22 15:04 144/70 H 11/27/22 15:00 18 11/27/22 15:00 98.2 F 18 11/27/22 15:01 100 11/27/22 15:01 88 11/27/22 14:56 100 11/27/22 14:56 93 H 11/27/22 14:55 93 H 11/27/22 14:55 127/78 11/27/22 14:51 100 11/27/22 14:51 91 H 11/27/22 14:46 100 11/27/22 14:46 84 11/27/22 14:44 108 H 11/27/22 14:44 126/80 11/27/22 14:41 100 11/27/22 14:41 101 H 11/27/22 14:30 18 11/27/22 14:30 18 11/27/22 14:00 18 11/27/22 14:00 18 11/27/22 14:36 100 11/27/22 14:36 71 11/27/22 14:35 62 11/27/22 14:35 126/60 11/27/22 14:31 100 11/27/22 14:31 88 11/27/22 14:26 100 11/27/22 14:26 80 11/27/22 14:25 75 11/27/22 14:25 111/56 L 11/27/22 14:21 100 11/27/22 14:21 73 11/27/22 14:16 100 11/27/22 14:16 80 11/27/22 14:14 95 H 11/27/22 14:14 140/86 11/27/22 14:11 100 11/27/22 14:11 84 11/27/22 14:06 100 11/27/22 14:06 78 11/27/22 14:05 64 11/27/22 14:05 127/71 11/27/22 14:01 100 11/27/22 14:01 68 11/27/22 13:56 100 11/27/22 13:56 85 11/27/22 13:54 63 11/27/22 13:54 142/68 H 11/27/22 13:51 100 11/27/22 13:51 66 11/27/22 13:46 100 11/27/22 13:46 67 11/27/22 13:43 69 11/27/22 13:43 126/63 11/27/22 13:41 100 11/27/22 13:41 75 11/27/22 13:36 100 11/27/22 13:36 66 11/27/22 13:34 60 11/27/22 13:34 137/79 11/27/22 13:31 100 11/27/22 13:31 66 11/27/22 13:26 100 11/27/22 13:26 62 11/27/22 13:24 64 11/27/22 13:24 139/82 11/27/22 13:21 100 11/27/22 13:21 67 11/27/22 13:16 100 11/27/22 13:16 69 11/27/22 13:00 18 11/27/22 13:00 98.1 F 18 11/27/22 13:14 75 11/27/22 13:14 130/79 11/27/22 13:11 99 11/27/22 13:11 79 11/27/22 13:06 100 11/27/22 13:06 77 11/27/22 13:04 78 11/27/22 13:04 118/87 11/27/22 13:01 100 11/27/22 13:01 71 11/27/22 12:56 100 11/27/22 12:56 82 11/27/22 12:54 62 11/27/22 12:54 118/69 11/27/22 12:51 100 11/27/22 12:51 62 11/27/22 12:46 99 11/27/22 12:46 62 11/27/22 12:44 64 11/27/22 12:44 99/64 L 11/27/22 12:41 100 11/27/22 12:41 69 11/27/22 12:36 99 11/27/22 12:36 71 11/27/22 12:33 58 L 11/27/22 12:33 115/58 L 11/27/22 12:30 18 11/27/22 12:30 18 11/27/22 12:31 100 11/27/22 12:31 69 11/27/22 12:26 99 11/27/22 12:26 63 11/27/22 12:00 20 11/27/22 12:00 20 11/27/22 12:24 57 L 11/27/22 12:24 112/56 L 11/27/22 12:00 20 11/27/22 12:00 20 11/27/22 12:21 100 11/27/22 12:21 65 11/27/22 12:16 99 11/27/22 12:16 69 11/27/22 12:11 100 11/27/22 12:11 77 11/27/22 12:06 100 11/27/22 12:06 84 11/27/22 12:01 100 11/27/22 12:01 73 11/27/22 11:56 99 11/27/22 11:56 61 11/27/22 11:53 61 11/27/22 11:53 119/77 11/27/22 11:51 99 11/27/22 11:51 65 11/27/22 11:46 99 11/27/22 11:46 70 11/27/22 11:43 61 11/27/22 11:43 124/80 11/27/22 11:41 99 11/27/22 11:41 61 11/27/22 11:36 99 11/27/22 11:36 65 11/27/22 11:34 61 11/27/22 11:34 126/79 11/27/22 11:31 99 11/27/22 11:31 62 11/27/22 11:30 18 11/27/22 11:30 18 11/27/22 11:26 98 11/27/22 11:26 62 11/27/22 11:24 62 11/27/22 11:24 132/71 11/27/22 11:21 99 11/27/22 11:21 68 11/27/22 11:05 98.1 F 11/27/22 11:16 98 11/27/22 11:16 63 11/27/22 11:11 99 11/27/22 11:11 67 11/27/22 11:00 18 11/27/22 11:00 18 11/27/22 10:30 16 11/27/22 10:30 16 11/27/22 11:06 98 11/27/22 11:06 65 11/27/22 10:00 18 11/27/22 10:00 18 11/27/22 11:04 60 11/27/22 11:04 128/80 11/27/22 11:01 99 11/27/22 11:01 66 11/27/22 10:56 99 11/27/22 10:56 68 11/27/22 10:55 62 11/27/22 10:55 129/76 11/27/22 10:51 99 11/27/22 10:51 70 11/27/22 10:46 99 11/27/22 10:46 81 11/27/22 10:44 70 11/27/22 10:44 136/65 11/27/22 10:41 100 11/27/22 10:41 79 11/27/22 10:36 99 11/27/22 10:36 69 11/27/22 10:34 59 L 11/27/22 10:34 114/66 11/27/22 10:31 100 11/27/22 10:31 64 11/27/22 10:26 100 11/27/22 10:26 63 11/27/22 10:24 59 L 11/27/22 10:24 124/71 11/27/22 10:21 100 11/27/22 10:21 62 11/27/22 10:16 99 11/27/22 10:16 68 11/27/22 10:14 65 11/27/22 10:14 125/61 11/27/22 10:11 99 11/27/22 10:11 64 11/27/22 10:06 100 11/27/22 10:06 67 11/27/22 10:03 63 11/27/22 10:03 132/64 11/27/22 10:01 99 11/27/22 10:01 70 11/27/22 10:00 62 11/27/22 10:00 124/58 L 11/27/22 09:58 64 11/27/22 09:58 130/72 11/27/22 09:56 99 11/27/22 09:56 69 11/27/22 09:56 63 11/27/22 09:56 126/73 11/27/22 09:45 18 11/27/22 09:45 18 11/27/22 09:54 63 11/27/22 09:54 135/73 11/27/22 09:51 100 11/27/22 09:51 62 01/28/23 09:52 62 11/27/22 09:52 139/63 11/27/22 09:50 67 11/27/22 09:50 129/61 11/27/22 09:47 60 11/27/22 09:47 139/69 11/27/22 09:46 99 11/27/22 09:46 61 11/27/22 09:42 78 11/27/22 09:42 132/86 11/27/22 09:41 100 11/27/22 09:41 77 11/27/22 09:40 73 11/27/22 09:40 125/88 11/27/22 09:36 100 11/27/22 09:36 75 11/27/22 09:31 100 11/27/22 09:31 84 11/27/22 09:29 75 11/27/22 09:29 133/108 H 11/27/22 09:26 99 11/27/22 09:26 66 11/27/22 09:21 99 11/27/22 09:21 72 11/27/22 09:16 100 11/27/22 09:16 86 11/27/22 09:11 99 11/27/22 09:11 70 11/27/22 09:06 100 11/27/22 09:06 64 11/27/22 09:01 99 11/27/22 09:01 71 11/27/22 09:00 20 11/27/22 09:00 98.4 F 20 11/27/22 08:56 99 11/27/22 08:56 64 11/27/22 08:51 99 11/27/22 08:51 63 11/27/22 08:46 99 11/27/22 08:46 78 11/27/22 07:59 71 11/27/22 07:59 134/74 11/27/22 06:41 72 120/67 Coding Level of Care Code None Diagnoses SROM (spontaneous rupture of membranes)
[2022-11-27] MEDS ORDERED: DIPHTHERIA/TETANUS/PERTUSSIS 0.5mL SYR/VIAL (Age 7+yrs) IM ONE (20:26)
[2022-11-27] MEDS ORDERED: HYDROCORTISONE ACETATE 25 MG SUPP PR PRN (20:26)
[2022-11-27] MEDS ORDERED: ACETAMINOPHEN 325 MG TAB PO PRN (20:26)
[2022-11-27] MEDS ORDERED: bisacodyL 10 MG SUPP PR PRN (20:26)
--- NOTE | 2022-11-27 20:26 | Delivery Summary ---
Vaginal Delivery Summary Date of Service November 27, 2022 Vaginal Delivery Summary [facility] PREOPERATIVE DIAGNOSIS: 1. Single intrauterine at 40 wga 2. Labor 3. SROM POSTOPERATIVE DIAGNOSIS: 1. Single intrauterine at 40 wga 2. Labor 3. SROM 4. Delivered PROCEDURE: 1. Normal spontaneous vaginal delivery. SURGEON: Juana Okeefe MD ANESTHESIA: Epidural. ESTIMATED BLOOD LOSS: 300 mL FLUIDS: Continuous LR. URINE OUTPUT: None. COMPLICATIONS: None. CONDITION: Stable. INDICATIONS: 27 yo G1 at 40 wga presented early this morning with spontaneous rupture of membranes. She was found to be 3-4 cm on arrival. She received an epidural for pain control and progressed spontaneously to 9.5cm. Pitocin was started due to persistent anterior lip and this ultimately did dilate to complete and she desired to push. FINDINGS: A viable male infant, weight pending with Apgars of 8 and 8 at 1 and 5 minutes respectively. SPECIMEN: Cord blood OPERATIVE REPORT: The patient progressed to 10 cm, 100% effaced and +2 station, pushed over intact perineum with anesthesia to deliver a viable male , weight and Apgars as above. Head of delivered in ROP position. No nuchal cord was present. Body and shoulders were delivered without difficulty. was delivered to maternal abdomen and nursing staff. Delayed cord clamping was performed for 60 seconds. Cord was clamped and cut. Cord blood was obtained. Placenta delivered spontaneously intact with 3-vessel cord. IV oxytocin and fundal massage were given for excellent hemostasis. Vagina, cervix, perineum, and placenta were inspected. A vaginal laceration and right labial laceration were noted and repaired using 3-0 and 4-0 vicryl respectively, there was excellent hemostasis. A hemostatic right labial abrasion and periclitoral abrasion were also noted and not needed to be repaired. Sponge and needle counts correct x2. No sponges were left behind. Mother and stable in immediate period. [facility] Vaginal Delivery Charge Vaginal Delivery Codes: 03104 global code for the antepartum, delivery, and post- Delivery Type Details: [facility]
--- NOTE | 2022-11-27 21:14 | Anesthesia Procedure Note ---
Date of Service November 27, 2022 Anesthesia Post Epidural Note Vital Signs Vital Signs: Temp Pulse Resp BP Pulse Ox 37.2 C 67 18 116/61 97 11/27/22 19:04 11/27/22 20:58 11/27/22 19:04 11/27/22 20:58 11/27/22 19:56 Pain Intensity Lower Abdomen: Pain Intensity: 0 Notes Mental Status: alert / awake / arousable and participated in evaluation Patient Amnestic to Procedure: No Nausea / Vomiting: adequately controlled Pain: adequately controlled Airway Patency, RR, SpO2: stable & adequate BP & HR: stable & adequate Hydration State: stable & adequate Neuraxial Anesthesia: was administered and sensory block is resolving Anesthetic Complications: no major complications apparent and Pt Satisfied with anesthetic care Epidural: Removed without complications and With tip intact
[2022-11-27] MEDS: BENZOCAINE 20% AER SPR 82.5 GM CAN EXT PRN (21:30)
[2022-11-27] MEDS: IBUPROFEN 600 MG TAB PO PRN (21:30)
[2022-11-27] MEDS: DOCUSATE SODIUM 100 MG CAP PO SCH (21:31)
[2022-11-28] MEDS: IBUPROFEN 600 MG TAB PO PRN ×5 (02:23→20:23)
--- NOTE | 2022-11-28 07:38 | Obstetrical Progress Note ---
Date of Service November 28, 2022 Assessment & Plan (1) Encounter for care and examination after delivery: 27 yo PP1 from , doing well -Meeting all pp milestones -A+/rubella immune/pumping -f/u 6 weeks for appt, continue routine pp care Subjective Ambulation: ambulating normally Voiding: no voiding problems Passing Gas:: Yes Diet Tolerance:: regular diet Lochia:: Small Feeding Type:: breast feeding (pumping) Pain well managed with medication Review of Systems Denies fevers, chills, n/v, HILLS, CP, SOB Physical Exam Constitutional WD/WN, vitals as above no acute distress Respiratory normal respiratory effort, lungs clear to auscultation Cardiovascular RRR, no murmur, no edema Gastrointestinal (Abdomen) Percussion/Palpation: abdomen soft; abdomen nontender fundus firm at umbilicus and NT Musculoskeletal BLE symmetric, nonerythematous, nontender Results & Data ([facility]) Vital Signs (Past 12 Hours) Vital Signs Temp Pulse Pulse Resp BP BP Pulse Ox 11/28/22 07:15 97.7 F 62 18 120/82 98 11/28/22 07:00 98.1 F 18 11/28/22 04:00 97.9 F 87 18 116/69 98 11/28/22 03:15 97.9 F 67 18 113/73 98 11/27/22 23:40 11/27/22 23:14 97.9 F 87 18 116/69 98 11/27/22 22:30 18 11/27/22 22:00 18 11/27/22 21:30 18 11/27/22 21:00 18 11/27/22 20:45 18 11/27/22 21:15 18 11/27/22 20:30 99.0 F 18 11/27/22 22:28 75 11/27/22 22:28 120/57 L 11/27/22 22:13 76 11/27/22 22:13 122/68 11/27/22 21:58 79 11/27/22 21:58 117/63 11/27/22 21:43 76 11/27/22 21:43 120/58 L 11/27/22 21:28 76 11/27/22 21:28 115/61 11/27/22 21:13 85 11/27/22 21:13 121/88 11/27/22 20:58 67 11/27/22 20:58 116/61 11/27/22 20:43 69 11/27/22 20:43 121/63 11/27/22 20:28 73 11/27/22 20:28 120/62 11/27/22 19:56 97 11/27/22 19:56 75 11/27/22 19:54 93 11/27/22 19:54 119 H 11/27/22 19:51 98 11/27/22 19:51 107 H 11/27/22 19:46 93 11/27/22 19:46 92 H 11/27/22 19:44 99 H 11/27/22 19:44 117/61 11/27/22 19:41 99 11/27/22 19:41 85 O2 Del Method 11/28/22 07:15 Room Air 11/28/22 07:00 Room Air 11/28/22 04:00 Room Air 11/28/22 03:15 Room Air 11/27/22 23:40 Room Air 11/27/22 23:14 Room Air 11/27/22 22:30 11/27/22 22:00 11/27/22 21:30 11/27/22 21:00 11/27/22 20:45 11/27/22 21:15 11/27/22 20:30 11/27/22 22:28 11/27/22 22:28 11/27/22 22:13 11/27/22 22:13 11/27/22 21:58 11/27/22 21:58 11/27/22 21:43 11/27/22 21:43 11/27/22 21:28 11/27/22 21:28 11/27/22 21:13 11/27/22 21:13 11/27/22 20:58 11/27/22 20:58 11/27/22 20:43 11/27/22 20:43 11/27/22 20:28 11/27/22 20:28 11/27/22 19:56 11/27/22 19:56 11/27/22 19:54 11/27/22 19:54 11/27/22 19:51 11/27/22 19:51 11/27/22 19:46 11/27/22 19:46 11/27/22 19:44 11/27/22 19:44 11/27/22 19:41 11/27/22 19:41
[2022-11-28] MEDS ORDERED: FERROUS SULFATE 325 MG TAB PO SCH (08:00)
[2022-11-28] MEDS: DOCUSATE SODIUM 100 MG CAP PO SCH ×2 (08:09→20:23)
[2022-11-28] MEDS: PRENATAL VITAMIN 1 TAB PO SCH (08:09)
[2022-11-28] MEDS ORDERED: bisacodyL 5 MG TABEC PO SCH (20:00)
[2022-11-28] MEDS: BENZOCAINE 20% AER SPR 82.5 GM CAN EXT PRN (20:26)
[2022-11-29] MEDS: IBUPROFEN 600 MG TAB PO PRN ×2 (04:28→09:07)
--- NOTE | 2022-11-29 05:39 | Obstetrical Progress Note ---
Date of Service <Diana Denson DO - Last Filed: 11/29/22 06:53> November 29, 2022 Assessment & Plan <Diana Denson DO - Last Filed: 11/29/22 06:53> (1) Encounter for care and examination after delivery: Plan continue OOB, ambulation, diet as tolerated <Juana Okeefe MD - Last Filed: 11/29/22 07:08> (1) Encounter for care and examination after delivery: Subjective <Diana Denson DO - Last Filed: 11/29/22 06:53> Stephen is a 27 y/o female who is now PPD # 2 following (spontaneous vaginal delivery) at 40 weeks. Reports feeling well overall this morning. Mild abdominal cramping pain well managed on analgesics. Voiding. Tolerating meals overnight and able to ambulate some. Some persistent lochia with some improvement this morning. Breast feeding. Review of Systems Denies fever, chills, sweats Denies shortness of breath, difficulty breathing, chest pain, palpitations, chest pressure. Denies breast pain. Denies dysuria. Denies headache or changes in vision. Physical Exam <Diana Denson DO - Last Filed: 11/29/22 06:53> General: Alert, oriented. No acute distress. Cardiac: Regular rate and rhythm, no murmurs/rubs/gallops. Respiratory: Clear to auscultation bilaterally a/p, no wheezes/rales/rhonchi. No increased work of breathing. Symmetrical chest rise. No respiratory distress. Abdomen: Soft, nontender, nondistended. Bowel sounds present. Uterus: Uterine fundus firm, palpable 1 cm below umbilicus. Lower Extremities: No lower extremity edema or swelling. No deep calf pain. Jack's negative bilaterally. Results & Data ([facility]) <Diana Denson DO - Last Filed: 11/29/22 06:53> Vital Signs (Past 12 Hours) Vital Signs Temp Pulse Resp BP O2 Del Method 11/28/22 20:00 64 18 122/73 Room Air 11/29/22 00:00 36.7 C 67 18 123/69 Room Air <Junaa Okeefe MD - Last Filed: 11/29/22 07:08> Co-Signing Physician Notes Resident Physician Supervision Note: I interviewed and examined the patient. Discussed with Dr. Denson and agree with findings and plan as documented in the note. Any exceptions or clarifications are listed here: PP2 s/p , doing well. VSS, exam benign and wnl. Stable for d/c home today Documented By: Juana Okeefe MD Resident Activity Tracking <Diana Denson, DO - Last Filed: 11/29/22 06:53> Resident Involvement: Resident Care Provided Care Provided: OB Delivery (Post )
[2022-11-29] MEDS: DOCUSATE SODIUM 100 MG CAP PO SCH (09:07)
[2022-11-29] MEDS: PRENATAL VITAMIN 1 TAB PO SCH (09:07)
--- NOTE | 2022-12-02 08:10 | Coding Query ---
CODING QUERY To promote full compliance with coding requirements relating to patient care, provider participation is requested in all cases of black belt uncertainty. Please assist us with the question(s) below: Coding Question(s): Please clarify the depth of the laceration due to delivery. Physician's Response(s): There is no depth associated with vaginal laceration as perineum was intact Thank you Sherin Lainez Principal Diagnosis: "that condition established after study, to be chiefly responsible for occasioning the admission of the patient to the hospital for care." Co-Existing Principal Diagnosis: "when two or more diagnoses equally meet the criteria for principal diagnosis as determined by the circumstances of admission, diagnostic work up, and/or therapy provided, and the Alphabetic Index, Tabular List, or another coding guideline does not provide sequencing direction, any one of the diagnoses may be sequenced first." "When the physician has documented what appears to be a current diagnosis in the body of the record, but has not included the diagnosis in the final diagnostic statement, the physician should be asked whether the diagnosis should be added." (Source [facility]oding [facility] 2 QTR90. p3-4) ADILSON
== END 2022-11-29 11:57 | disposition home or self-care (01) | DRG 807 ==
LOC: OPB 06:36 → 4S1 06:38 → 4E2 23:31